=== PATIENT | male | born 1930 | race Caucasian/White ===

== ENCOUNTER 2016-04-19 16:36 | Emergency (ER) | payer OTHER ==
[~2016-04-19] VITALS: Ht 167.6 cm; Wt 118.6 kg
[~2016-04-19 16:36] MED LIST: AMARYL1 MG PO; CARDURA4 MG PO; COREG25 M1 PO; Coreg PO; Dulcolax PO; Dulcolax PR; ENDOCET 5-3251 EACH PO; FLOMAX0.4 MG PO; Flexeril PO; GLUCOTROL10 MG PO; HYGROTON25 MG PO; K-DUR10 MEQ PO; K-Dur PO; LANTUS 10100 UNITS/ SC; LOTREL 10/41 CAPSULE PO; LOTREL 5/401 CAPSULE PO; PRADAXA75 MG PO; PRILOSEC20 MG PO; Pradaxa PO; PriLOSEC PO; ROCALTROL0.25 MCG PO; VITAMIN D1000 INTUN PO; VITAMIN D31000 UNIT PO; VYTORIN 10/41 TABLET PO; ZOCOR20 MG PO
[2016-04-19 17:49] LABS: HEMATOCRIT 43.5 % (38.0-50.0); MCH 27.6 PG (29.0-34.0); MEAN PLAT.VOLUME 9.7 uM^3 (9.0-12.4); PLATELET COUNT 225 K/uL (156-360); RBC DIS.WIDTH-CV 14.7 % (11.8-14.6); RBC DIS.WIDTH-SD 42.6 % (39-53); RED BLOOD COUNT 5.37 M/uL (4.00-5.50); WHITE BLOOD COUNT 9.6 K/uL (4.1-10.2)
[2016-04-19 18:08] LABS: CHLORIDE 101 mEq/L (99-109); POTASSIUM 4.1 mEq/L (3.7-5.4); SODIUM 140 mEq/L (136-147)
[2016-04-19 18:09] LABS: GLUCOSE 98 mg/dL (70-99)
[2016-04-19 18:11] LABS: ANION GAP 9 MEQ/L (2-14)
[2016-04-19 18:13] LABS: GFR ESTIMATE (CALCULATED) 32 mL/min/
[2016-04-19 18:14] LABS: UREA NITROGEN (BUN) 21 mg/dL (9-23)
[2016-04-19 18:15] LABS: TROP-I INTERPRETATION NEGATIVE; TROPONIN-I < 0.01 ng/mL (0.0-0.30)
[2016-04-19 21:53] LABS: CREATINE KINASE 67 IU/L (1-294)
[2016-04-19 22:19] LABS: TROP-I INTERPRETATION NEGATIVE; TROPONIN-I 0.02 ng/mL (0.0-0.30)
[2016-04-20 00:08] VITALS: BP 165/100
[2016-04-21] MEDS ORDERED: CHLORTHALIDONE25 MG PO (16:48)
[2016-04-21] MEDS ORDERED: LISINOPRIL40 MG PO (16:49)
[2016-04-21] MEDS ORDERED: HYDRALAZINE HCL25 MG PO (16:50)
[2016-04-21] MEDS ORDERED: NITROSTAT0.4 MG SL (16:50)
[2016-04-21] MEDS ORDERED: ISOSORBIDE MONO30 MG PO (16:50)
== END 2016-04-20 00:09 | disposition home or self-care (01) ==
LOC: EME 16:36
PROVIDERS: Emergency Medicine
DX: I10 Essential (primary) hypertension (principal); M85.442 Solitary bone cyst, left hand; E11.9 Type 2 diabetes mellitus without complications; E78.5 Hyperlipidemia, unspecified; K21.9 Gastro-esophageal reflux disease without esophagitis; Z85.51 Personal history of malignant neoplasm of bladder; Z79.4 Long term (current) use of insulin; Z79.84 Long term (current) use of oral hypoglycemic drugs; Z87.891 Personal history of nicotine dependence
CPT/HCPCS: 70450; 71020; 73130; 80048; 82550 91; 83880; 84484; 85027; 93005; 99281; 99285

== ENCOUNTER 2016-04-21 13:42 | Observation (INO) | payer OTHER ==
[~2016-04-21] VITALS: Ht 167.6 cm; Wt 116.8 kg
[2016-04-21 14:20] LABS: HEMATOCRIT 42.1 % (38.0-50.0); MCH 27.9 PG (29.0-34.0); MCHC 34.4 G/DL (30.0-36.0); MCV 81.1 FL (86-99); MEAN PLAT.VOLUME 9.8 uM^3 (9.0-12.4); PLATELET COUNT 223 K/uL (156-360); RBC DIS.WIDTH-CV 14.7 % (11.8-14.6); RBC DIS.WIDTH-SD 42.8 % (39-53); RED BLOOD COUNT 5.19 M/uL (4.00-5.50); WHITE BLOOD COUNT 9.3 K/uL (4.1-10.2)
[2016-04-21 14:30] LABS: CHLORIDE 99 mEq/L (99-109); POTASSIUM 3.3 mEq/L (3.7-5.4); SODIUM 138 mEq/L (136-147)
[2016-04-21 14:31] LABS: GLUCOSE 135 mg/dL (70-99)
[2016-04-21 14:33] LABS: ANION GAP 14 MEQ/L (2-14)
[2016-04-21 14:35] LABS: GFR ESTIMATE (CALCULATED) 27 mL/min/
[2016-04-21 14:36] LABS: UREA NITROGEN (BUN) 26 mg/dL (9-23)
[2016-04-21 15:33] LABS: TROP-I INTERPRETATION NEGATIVE; TROPONIN-I 0.02 ng/mL (0.0-0.30)
[2016-04-21] MEDS ORDERED: CHLORTHALIDONE25 MG PO (16:48)
[2016-04-21] MEDS ORDERED: LISINOPRIL40 MG PO (16:49)
[2016-04-21] MEDS ORDERED: HYDRALAZINE HCL25 MG PO (16:50)
[2016-04-21] MEDS ORDERED: ISOSORBIDE MONO30 MG PO (16:50)
[2016-04-21] MEDS ORDERED: NITROSTAT0.4 MG SL (16:50)
[2016-04-21 17:14] LABS: POINT-OF-CARE METER ID UU14100415
[2016-04-21 20:44] VITALS: BP 177/107
[2016-04-21 20:47] LABS: TROP-I INTERPRETATION NEGATIVE; TROPONIN-I 0.02 ng/mL (0.0-0.30)
[2016-04-21 21:26] VITALS: BP 170/94
[2016-04-21 22:03] LABS: POINT-OF-CARE METER ID UU13113831
[2016-04-22] VITALS: BP 108/54
[2016-04-22 02:40] LABS: TROP-I INTERPRETATION NEGATIVE; TROPONIN-I 0.02 ng/mL (0.0-0.30)
[2016-04-22 06:09] LABS: HEMATOCRIT 38.7 % (38.0-50.0); MCH 27.8 PG (29.0-34.0); MCHC 33.3 G/DL (30.0-36.0); MCV 83.4 FL (86-99); MEAN PLAT.VOLUME 10.5 uM^3 (9.0-12.4); PLATELET COUNT 188 K/uL (156-360); RBC DIS.WIDTH-SD 45.5 % (39-53); RED BLOOD COUNT 4.64 M/uL (4.00-5.50); WHITE BLOOD COUNT 7.7 K/uL (4.1-10.2)
[2016-04-22 06:28] LABS: ANION GAP 10 MEQ/L (2-14); CHLORIDE 100 MEQ/L (99-109); GFR ESTIMATE (CALCULATED) 32 mL/min/; GLUCOSE 99 mg/dL (70-99); POTASSIUM 3.3 MEQ/L (3.7-5.4); SAMPLE HEMOLYSIS CHECK 0; SAMPLE ICTERIC CHECK 0; SAMPLE LIPEMIA CHECK 0; SODIUM 138 MEQ/L (136-147); UREA NITROGEN (BUN) 26 mg/dL (9-23)
[2016-04-22 08:22] VITALS: BP 163/92
[2016-04-22 09:27] LABS: POINT-OF-CARE METER ID UU13113831
[2016-04-22 12:11] VITALS: BP 121/76
[2016-04-22 12:25] LABS: POINT-OF-CARE METER ID UU13113831
== END 2016-04-22 14:50 | disposition home or self-care (01) ==
LOC: EME 13:42 → EDOF 15:37 → 5WEST 19:58
PROVIDERS: Emergency Medicine; Hospitalist
DX: R07.9 Chest pain, unspecified (principal); I12.9 Hypertensive chronic kidney disease with stage 1 through stage 4 chronic kidney disease, or unspecified chronic kidney disease; R00.2 Palpitations; R42 Dizziness and giddiness; R06.09 Other forms of dyspnea; E66.01 Morbid (severe) obesity due to excess calories; E11.22 Type 2 diabetes mellitus with diabetic chronic kidney disease; I48.1 Persistent atrial fibrillation; I25.10 Atherosclerotic heart disease of native coronary artery without angina pectoris; E87.5 Hyperkalemia; E87.6 Hypokalemia; N18.4 Chronic kidney disease, stage 4 (severe); K21.9 Gastro-esophageal reflux disease without esophagitis; Z85.51 Personal history of malignant neoplasm of bladder; Z79.4 Long term (current) use of insulin
CPT/HCPCS: 71020; 80048; 82948; 84484; 85027; 93005; 99281; 99285; G0378; J1815